=== PATIENT | female | born 1965 | race Caucasian/White ===

== ENCOUNTER 2024-07-21 08:35 | Outpatient (AMB) | payer OTHER, SELFPAY ==
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
[2024-07-21 08:31] VITALS: BP 108/82; PULSE 87; RESP 14; TEMP 36.8; O2SAT 97; BMI 31.4
--- OUTSIDE RECORDS SUMMARY | 2024-07-21 08:52 | XMS_ITS | Clinical Summary ---
Author Organization [facility] Address [address] [place] [address] Phone Care Team Providers Care Pallet Rectifier Name Role Phone Birdie Beth JAKE Primary Care Provider [phone] Allergies Active Allergy Reactions Criticality Noted Date Comments Atorvastatin 09/12/2023 Neomycin Rash,Unknown Low 04/17/2018 Medications polyethylene glycol (Golytely) 236-22.74-6.74 -5.86 gram solution Take 4L by mouth once for one dose. May substitue any PEG. Starting at 6PM the night before your procedure drink 1 8oz glasses at your own pace until you complete half of the gallon. Finish 2nd half of the gallon 5 hours before your procedure. 4000 mL 4 Active bisacodyL (DULCOLAX) 5 mg EC tablet Take 2 tablets by mouth right before beginning bowel prep. See instructions provided by the office 2 tablet 4 Active Surgical History Surgery Date Site/Laterality Comments BREAST CYST ASPIRATION Right Social History Tobacco Use Types Packs/Day Years Used Date Smoking Tobacco: Never Assessed Comments No Sex and Gender Information Value Date Recorded Sex Assigned at Not on file Legal Sex Female 11:07 AM EDT Gender Identity Not on file Sexual Orientation Not on file Obstetrics History Para Term AB IAB SAB Ectopic Multiple Livin g Live Births 4 Last Filed Vital Signs Vital Sign Reading Time Taken Comments Blood Pressure - - Pulse - - Temperature - - Respiratory Rate - - Oxygen Saturation - - Inhaled Oxygen Concentration - - Weight 74.8 kg (165 lb) 12/31/2023 8:14 AM EST Height 154.9 cm (5' 1 ) 12/31/2023 8:14 AM EST Body Mass Index 31.18 12/31/2023 8:14 AM EST Plan of Treatment Health Maintenance Due Date Last Done Comments Cervical Cancer Screening: P ap Smear 06/14/1988 Pneumococcal Vaccine: 50+ Years (1 of 1 - PCV) 06/14/2017 Zoster Vaccines (1 of 2) 06/14/2017 Cholesterol Screening (Lipid Panel) 09/14/2023 Colorectal Cancer Screening: Colonoscopy 09/14/2023 Depression Screening 09/14/2023 HIV Screening 09/14/2023 Hepatitis C Screening 09/14/2023 Social Influencers of Health Screening 09/14/2023 COVID-19 Vaccine (4 - 2023-2 5 season) 2023 01/09/2022, 01/07/2022, 12/12/2021 Influenza Vaccine (Season Ended) 2024 12/12/2021, 11/28/2018, 01/08/2018 Breast Cancer Screening 12/30/2025 12/31/2023 DTaP,Tdap,and Td Vaccines (3 - Td or Tdap) 01/10/2032 01/09/2022, 07/11/2011 Hepatitis B Vaccines Completed 05/11/2017, 12/14/2016, 11/13/2016 HIB Vaccines Aged Out No longer eligi ble based on patient's age to complete this topic HPV Vaccines Aged Out No longer eligi ble based on patient's age to complete this topic Hepatitis A Vaccines Aged Out No long er eligible based on patient's age to complete this topic IPV Vaccines Aged Out No longer eligi ble based on patient's age to complete this topic MMR Vaccines Aged Out No longer eligi ble based on patient's age to complete this topic Meningococcal ACWY Vaccine Aged Out N o longer eligible based on patient's age to complete this topic Meningococcal B Vaccine Aged Out No l onger eligible based on patient's age to complete this topic Pneumococcal Vaccine: Pediatrics (0 to 5 Years) and At-Risk Patients (6 to 64 Years) Aged Out No longer eligible b ased on patient's age to complete this topic RSV Immunization Patients Under 20 months Aged Out No longer eligible b ased on patient's age to complete this topic Varicella Vaccines Aged Out No longer eligible based on patient's age to complete this topic Procedures Procedure Name Priority Date/Time Associated Diagnosis Comments MG MAMMO DIGITAL SCREENING W ALEX BILAT Routine 12/31/2023 8:28 AM EST Encounter for screening mammogram for breast cancer from Last 3 Months or Most Recently Relevant to Health Maintenance Results * MG Mammo Digital Screening w Alex bilat (12/31/2023 8:28 AM EST) Anatomical Region Laterality Modality Breast Bilateral Mammography 01/02/2024 6:37 AM EST Impressions 01/02/2024 6:44 AM EST Heterogeneously dense tissue. ?? Circumscribed bilateral breast masses with typically benign features. The patient and provider should discuss the potential benefits of bilateral screening breast ultrasound ASSESSMENT: ?? BI-RADS 2: BENIGN RECOMMENDATION(S): 1: Routine screening mammogram BILATERAL in 1 year. -------- FINAL REPORT -------- Dictated By: Bud Abreu Dictated Date: 01/02/2024 06:37 ET Assigned Physician: Bud Abreu Reviewed and Electronically Signed By: Bud Abreu Signed Date: 01/02/2024 06:44 ET Workstation ID: [id number] Transcribed By: Self Edit Transcribed Date: 01/02/2024 06:37 ET Narrative 01/02/2024 6:44 AM EST EXAM: ??SCREENING MAMMOGRAPHY, BILATERAL HISTORY: ??SCREENING. ??No additional history. COMPARISON: ??04/05/2016, 11/18/2014 TECHNIQUE: Synthesized CC and MLO projections of each breast. ??Tomosynthesis of each breast in the CC and MLO projections. ADDITIONAL IMAGING: None Computer-aided detection was employed with the iCAD ??profound AI 3-D. TISSUE DENSITY: The breasts are heterogeneously dense, which may obscure small masses. (BI-RADS category C) FINDINGS: RIGHT BREAST: There are multiple circumscribed equal density oval masses. ??No additional suspicious right breast findings LEFT BREAST: There are multiple circumscribed equal density oval masses. ??No additional suspicious left breast findings Procedure Note Bud Abreu MD - 11/13/2024 EXAM: SCREENING MAMMOGRAPHY, BILATERAL HISTORY: SCREENING. No additional history. COMPARISON: 04/05/2016, 11/18/2014 TECHNIQUE: Synthesized CC and MLO projections of each breast.Tomosynthesis of each breast in the CC and MLO projections. ADDITIONAL IMAGING: None Computer-aided detection was employed with the iCAD profound AI 3-D. TISSUE DENSITY: The breasts are heterogeneously dense, which may obscuresmall masses. (BI-RADS category C) FINDINGS: RIGHT BREAST: There are multiple circumscribed equal density oval masses. No additionalsuspicious right breast findings LEFT BREAST: There are multiple circumscribed equal density oval masses. No additionalsuspicious left breast findings IMPRESSION: Heterogeneously dense tissue. Circumscribed bilateral breast masses with typically benign features. The patient and provider should discuss the potential benefits ofbilateral screening breast ultrasound ASSESSMENT: BI-RADS 2: BENIGN RECOMMENDATION(S): 1: Routine screening mammogram BILATERAL in 1 year. -------- FINAL REPORT -------- Dictated By: Bud Abreu Dictated Date: 01/02/2024 06:37 ET Assigned Physician: Bud Abreu Reviewed and Electronically Signed By: Bud Abreu Signed Date: 01/02/2024 06:44 ET Workstation ID: [id number] Transcribed By: Self Edit Transcribed Date: 01/02/2024 06:37 ET us Self Referral Sppl IMG BI PROCEDURES Final Resul t from Last 3 Months or Most Recently Relevant to Health Maintenance Insurance [facility] Care Teams Pallet Rectifier Relationship Specialty Start Date End Date Birdie Beth NP [address] [place] [id number] PCP - General 04/20/23
== END 2024-07-21 09:19 | disposition home or self-care (01) ==
LOC: HO.HMCFM 08:35
PROVIDERS: Visit Provider Physician Assistant Medical
DX: R92.30 Dense breasts, unspecified (principal); R79.89 Other specified abnormal findings of blood chemistry; E78.5 Hyperlipidemia, unspecified; F41.8 Other specified anxiety disorders; L30.9 Dermatitis, unspecified; N63.10 Unspecified lump in the right breast, unspecified quadrant; N63.20 Unspecified lump in the left breast, unspecified quadrant; E66.811 Obesity, class 1

== ENCOUNTER → 2024-07-21 08:35 | Outpatient (BNVA) | payer OTHER, SELFPAY | PROVIDERS: Visit Provider Physician Assistant Medical | DX: N63.10 Unspecified lump in the right breast, unspecified quadrant (principal); N63.20 Unspecified lump in the left breast, unspecified quadrant; R92.30 Dense breasts, unspecified; R79.89 Other specified abnormal findings of blood chemistry; E78.5 Hyperlipidemia, unspecified; F41.8 Other specified anxiety disorders; L30.9 Dermatitis, unspecified; E66.811 Obesity, class 1; Z68.31 Body mass index [BMI] 31.0-31.9, adult | CPT/HCPCS: 96127; 99202 ==

== ENCOUNTER → 2024-11-04 08:58 | Outpatient (REF) | payer OTHER, SELFPAY ==
--- NOTE | 2024-11-04 09:02 | CA_ITS ---
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 The calculated ejection fraction is 65% by biplane method. - Mrkj-hy-kaxuxzmb focal hypertrophy of the basal septum. - No obvious valvular pathology seen on this study. Findings Left Ventricle Normal left ventricular cavity size. The left ventricular systolic function is normal. The calculated ejection fraction is 65% by biplane method. There is no evidence of regional wall motion abnormalities. Diastolic function is normal for age. Xegb-bu-nnrafcii focal hypertrophy of the basal septum. Right Ventricle Normal right ventricular cavity size and systolic function. Atria Both atria are normal in size. Aortic Valve There is a normal trileaflet aortic valve. There is no aortic valve stenosis. There is no aortic valve regurgitation. Mitral Valve The mitral valve appears normal. There is no mitral valve regurgitation. There is no mitral valve stenosis. Pulmonic Valve The pulmonic valve is likely normal. Tricuspid Valve Normal tricuspid valve structure. There is trace tricuspid valve regurgitation. There is no evidence of pulmonary hypertension. Great Vessels The asc aorta and aortic arch are normal in size. Venous The inferior vena cava is normal in size and collapses greater than 50% with inspiration. Pericardium/Pleural There is no evidence of pericardial effusion. Prior Study Comparison No prior study available for comparison. Recommendations, Care & Conclusions No obvious valvular pathology seen on this study. Measurements 2D Linear Measurements IVSd: 1.28 0.6-0.9/0.6-1.0 cm LVIDd: 3.45 3.9-5.3/4.2-5.9 cm LVIDd Index: 2.07 2.4-3.2/2.2-3.1 cm/m2 LVIDs: 2.17 2.0-3.6 cm LVPWd: 0.93 0.7-1.1 cm LA Diam: 2.90 2.7-3.8/3.0-4.0 cm LAIDs Index: 1.74 1.5-2.3 cm/m2 LV Mass: 145.87 67-162/88-224 g LV Mass Index: 87.35 43-95/49-115 g/m2 LVOT Diam: 2.20 3.0+(-)1.3 cm 2D Systolic Function EF 4C: 63.60 >55% EF 2C: 64.00 >55% EF BiP: 64.70 >55% Mitral Valve MV Pk E: 0.53 MV PK A: 0.67 MV Decel Time: 191.00 E/A: 0.80 E'Lateral: 11.10 E'Medial: 5.98 E/E' Med: 8.90 E/E' Lat: 4.80 PHT: 56.00 MVA PHT: 3.93 Decel Garden: 2.77 Aortic Valve AoV Pk Hector: 1.09 AoV Mn Hector: 0.82 AoV VTI: 0.22 AoV Pk Grad: 5.00 Aov Mn Grad: 3.00 VLADIMIR Cont.VTI: 2.79 LVOT LVOT Pk Hector: 0.88 LVOT Mn Hector: 0.59 LVOT VTI: 0.16 LVOT Pk Grad: 3.00 LVOT Mn Grad: 2.00 LVOT Diam: 2.20 LVOT Area: 3.80 Diastolic Function MV Pk E: 0.53 MV Pk A: 0.67 E/A: 0.80 E'Medial: 5.98 E/E' Med: 8.90 E' Laterial: 11.10 E/E' Lat: 4.80 Right Ventricle TAPSE (mm): 20.00 TVS' Hector: 10.40 Tricuspid Valve RA Press: 3.00 Great Vessels Aorta Sinus of Valsalva: 3.38 2.0-3.5 cm Ao Asc: 3.00 2.1-3.4 cm Ao Arch: 2.60 Updated in Other Vendor System with Status of Final Norbert Rubio MD electronically signed on 11/05/2024 10:42:53 AM with status of Final
--- OUTSIDE RECORDS SUMMARY | 2024-11-04 11:09 | XMS_ITS | Clinical Summary ---
Author Organization [facility] Address [address] [place] [address] Phone Care Team Providers Care Broaching Machine Operator Name Role Phone Birdie Beth JAKE Primary Care Provider [phone] Allergies Active Allergy Reactions Criticality Noted Date [...] by the office 2 tablet 4 Active Encounters Date Type Department Care Team Description 08/27/2024 9:49 AM EDT - 08/27/2024 11:59 PM EDT Hospital Encounter [facility] [address] [place] [address] Dense breast Discharge Disposition: Home or Self Care from Last 3 Months Surgical History Surgery Date Site/Laterality Comments BREAST [...] 12/31/2023 8:14 AM EST Plan of Treatment Upcoming Encounters Date Type Department Care Team (Late st Contact Info) Description 02/27/2025 1:00 PM EST Appointment [facility] [address] [place] [address] Health Maintenance Due Date Last Done Comments Cervical Cancer Screening: P ap Smear 06/14/1988 Pneumococcal Vaccine: 50+ Years (1 of 1 - PCV) 06/14/2017 Zoster Vaccines (1 of 2) 06/14/2017 Cholesterol Screening (Lipid Panel) 09/14/2023 HIV Screening 09/14/2023 Hepatitis C Screening 09/14/2023 Social Influencers of Health Screening 09/14/2023 Depression Screening 02/20/2024 COVID-19 Vaccine ( - 2024-2 6 season) 2024 01/09/2022, 01/07/2022, 12/12/2021 Influenza Vaccine (#1) 2024 , 11/28/2018, 01/08/2018 Breast Cancer Screening 12/30/2025 12/31/2023 Colorectal Cancer Screening: FIT-DNA (Cologuard) 08/06/2027 08/05/2024, 08/05/2024 DTaP,Tdap,and Td Vaccines (3 - Td or [...] Procedure Name Priority Date/Time Associated Diagnosis Comments US BREAST COMPLETE BILAT SCREENING Routine 08/27/2024 10:51 AM EDT Dense breast MG MAMMO DIGITAL SCREENING W ALEX BILAT Routine 12/31/2023 8:28 AM EST Encounter for screening mammogram for breast cancer from Last 3 Months or Most Recently Relevant to Health Maintenance Results * US Breast Complete bilat Screening (08/27/2024 10:51 AM EDT) Anatomical Region Laterality Modality Breast Bilateral Ultrasound 08/27/2024 10:4 0 AM EDT Impressions 08/27/2024 10:48 AM EDT There are no suspicious masses. No suspicious areas of altered echotexture. There are probably benign findings as described above in each breast. Recommend short interval diagnostic bilateral breast ultrasound in 6 months The patient will be due for bilateral screening mammography ASSESSMENT: BI-RADS 3: PROBABLY BENIGN RETURN TO ROUTINE FOLLOW-UP: No RECOMMENDATION(S): 1: Ultrasound follow-up BILATERAL in 6 months. Location: [address], [address] -------- FINAL REPORT -------- Dictated By: Bud Abreu Dictated Date: 08/27/2024 10:40 ET Assigned Physician: Bud Abreu Reviewed and Electronically Signed By: Bud Abreu Signed Date: 08/27/2024 10:48 ET Workstation ID: [id number] Transcribed By: Self Edit Transcribed Date: 08/27/2024 10:40 ET Narrative 08/27/2024 10:48 AM EDT EXAM: BILATERAL SCREENING BREAST ULTRASOUND US COMPARISON: None MAMMOGRAPHY TISSUE DENSITY: The breasts are heterogeneously dense, which may obscure small masses. (BI-RADS category C) HISTORY: SCREENING IMAGING: High-frequency linear transducer grayscale imaging of each breast was performed. Documentation and archived of images in multiple planes from all 4 quadrants of each breast and of the axilla and retroareolar regions performed. FINDINGS: RIGHT BREAST: 5 o'clock position, 2 cm from right nipple Circumscribed homogeneous hypoechoic oval mass with long axis parallel. No color signal. No suspicious posterior features. 7//25-0.6 cm This has probably benign features 7 o'clock position, 5 cm from right nipple Circumscribed homogeneous hypoechoic oval mass. Long axis parallel. No suspicious posterior features. No color signal. 7//25-1.0 cm This has probably benign features There are benign cysts. There is duct ectasia. LEFT BREAST: 2 o'clock position, 4 cm from left nipple There are a group of small anechoic spaces. This likely represents grouped microcysts. No color signal. No suspicious posterior features 7/25-0.4 cm This has probably benign features There are some benign cysts. There is duct ectasia. Procedure Note Bud Abreu MD - 08/27/2024 EXAM: BILATERAL SCREENING BREAST ULTRASOUND US COMPARISON: None MAMMOGRAPHY TISSUE DENSITY: The breasts are heterogeneously dense, whichmay obscure small masses. (BI-RADS category C) HISTORY: SCREENING IMAGING: High-frequency linear transducer grayscale imaging of each breastwas performed. Documentation and archived of images in multiple planesfrom all 4 quadrants of each breast and of the axilla and retroareolarregions performed. FINDINGS: RIGHT BREAST: 5 o'clock position, 2 cm from right nipple Circumscribed homogeneous hypoechoic oval mass with long axis parallel.No color signal. No suspicious posterior features. 7//25-0.6 cm This has probably benign features 7 o'clock position, 5 cm from right nipple Circumscribed homogeneous hypoechoic oval mass. Long axis parallel. Nosuspicious posterior features. No color signal. 7//25-1.0 cm This has probably benign features There are benign cysts. There is duct ectasia. LEFT BREAST: 2 o'clock position, 4 cm from left nipple There are a group of small anechoic spaces. This likely representsgrouped microcysts. No color signal. No suspicious posterior features 08/27/24-0.4 cm This has probably benign features There are some benign cysts. There is duct ectasia. IMPRESSION: There are no suspicious masses. No suspicious areas of altered echotexture. There are probably benign findings as described above in each breast. Recommend short interval diagnostic bilateral breast ultrasound in 6months The patient will be due for bilateral screening mammography ASSESSMENT: BI-RADS 3: PROBABLY BENIGN RETURN TO ROUTINE FOLLOW-UP: No RECOMMENDATION(S): 1: Ultrasound follow-up BILATERAL in 6 months. Location: [address], [address] -------- FINAL REPORT -------- Dictated By: Bud Abreu Dictated Date: 08/27/2024 10:40 ET Assigned Physician: Bud Abreu Reviewed and Electronically Signed By: Bud Abreu Signed Date: 08/27/2024 10:48 ET Workstation ID: [id number] Transcribed By: Self Edit Transcribed Date: 08/27/2024 10:40 ET us Faustina MUNIZ IMG US PROCEDURES Final Resul t * MG Mammo Digital Screening w Alex bilat (12/31/2023 8:28 AM EST) Anatomical Region Laterality Modality Breast Bilateral Mammography 01/02/2024 6:37 AM EST Impressions 01/02/2024 6:44 AM EST Heterogeneously dense tissue. Circumscribed bilateral breast masses with typically benign features. The patient and provider should discuss the potential benefits of bilateral screening breast ultrasound ASSESSMENT: BI-RADS 2: BENIGN RECOMMENDATION(S): 1: Routine screening mammogram BILATERAL in 1 year. -------- FINAL REPORT -------- Dictated By: Bud Abreu Dictated Date: 01/02/2024 06:37 ET Assigned Physician: Bud Abreu Reviewed and Electronically Signed By: Bud Abreu Signed Date: 01/02/2024 06:44 ET Workstation ID: [id number] Transcribed By: Self Edit Transcribed Date: 01/02/2024 06:37 ET Narrative 01/02/2024 6:44 AM EST EXAM: SCREENING MAMMOGRAPHY, BILATERAL HISTORY: SCREENING. No additional history. COMPARISON: 04/05/2016, 11/18/2014 TECHNIQUE: Synthesized CC and MLO projections of each breast. Tomosynthesis of each breast in the CC and MLO projections. ADDITIONAL IMAGING: None Computer-aided detection was employed with the [employer] AI 3-D. TISSUE DENSITY: The breasts are heterogeneously dense, which may obscure small masses. (BI-RADS category C) FINDINGS: RIGHT BREAST: There are multiple circumscribed equal density oval masses. No additional suspicious right breast findings LEFT BREAST: There are multiple circumscribed equal density oval masses. No additional suspicious left breast findings Procedure Note Bud Abreu MD - 01/02/2024 EXAM: SCREENING MAMMOGRAPHY, BILATERAL HISTORY: SCREENING. No additional history. COMPARISON: 04/05/2016, 11/18/2014 TECHNIQUE: Synthesized CC and MLO projections of each breast.Tomosynthesis of each breast in the CC and MLO projections. ADDITIONAL IMAGING: None Computer-aided detection was employed with the [employer] AI 3-D. TISSUE DENSITY: The breasts [...] Abreu Reviewed and Electronically Signed By: Bud Arbeu Signed Date: 01/02/2024 06:44 ET Workstation ID: [id number] Transcribed By: Self Edit Transcribed Date: 01/02/2024 06:37 ET us Self Referral Sppl IMG BI PROCEDURES Final Resul t from Last 3 Months or Most Recently Relevant to Health Maintenance Insurance [facility] PL[facility] MEDICAID - [place] Care Teams Broaching Machine Operator Relationship Specialty Start Date End Date Birdie Beth NP [address] [place] [address] PCP - General 04/20/23
--- OUTSIDE RECORDS SUMMARY | 2024-11-04 11:09 | XMS_ITS | Clinical Summary ---
Author Organization [facility] Address [address] [facility] [place], [place] [address] [place] [phone] Phone Care Team Providers Care Sports Doctor Name Role Phone Sonia Horowitz MD Primary Care Provide r Allergies Active Allergy Reactions Criticality Noted Date Comments Neomycin Rash Low 04/17/2018 Medications buPROPion (WELLBUTRIN SR) 100 MG SR 12 hr tablet Take 100 mg by mouth 2 (two) times a day. Active venlafaxine (EFFEXOR) 50 MG tablet Take 50 mg by mouth 2 (two) times a day. Active cholecalciferol (VITAMIN D3) 5,000 unit capsule Take 5,000 Units by mouth daily. Active black cohosh 540 mg Cap Take 2 capsules by mouth daily. Active turmeric 400 mg Cap Take 400 mg by mouth daily. Active ASHWAGANDHA EXTRACT ORAL Take 1 capsule by mouth daily. Active therapeutic multivitamin tablet Take 1 tablet by mouth daily. Active b complex vitamins capsule Take 1 capsule by mouth daily. Active phentermine 15 MG capsuleIndication s:Obesity, Class I, BMI 30-34.9 Take 1 capsule (15 mg total) by mouth every morning. 60 capsule 1 3 Active Active Problems Problem Noted Date Diagnosed Date Obesity, Class I, BMI 30-34.9 01/05/2020 Assessment & Plan (12/06/2022 10:55 AM EDT): Estimated body mass index is 32.08 kg/m as calculated from the following: Height as of this encounter: 156.2 cm (5' 1.5 ). Weight as of this encounter: 78.3 kg (172 lb 9.6 oz). Weight at Initial Visit: Age: 54 y.o. Weight: 193 lbs. BMI: ?35 Weight History (triggers to weight gain) Weight at age 20: 118 lbs. Onset of weight gain: Always had a problem with weight . First at age 24, gained weight during , challenge losing weight. Divorce. Weight gain triggers: Stress, lack of time. Highest weight: 193 lbs. : 4 pregnancies, gained 50 lbs with each . No GDM. Last at age [age] years old. Prior Weight Loss Efforts Self directed diets: Exercising. Previously in [employer] and [email or web address]. 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 Hypnosis. Commercial Programs: None. Anti-Obesity Medications: None. Weight Loss surgery: None. Family History: Obesity: Father and sister. DM: Father and sister Diet: Intermittent fasting, focusing on water intake. 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 Activity during day. Sleep: Disrupted sleep, hot flashes. Taking Black Cohosh. Stress: High stress time. from , shared custody. Support: Lives with daughter, older children out of house. 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 Menstrual Cycles: Regular cycles remain. Contraception: Previously on OCP, now off. Weight gain risk factors: + FH of obesity and DM, high stress time, now limited activity. She returns today for a follow-up appointment. She was last seen 2.5 years ago. At the time of our last visit she had been on treatment with phentermine. She was tolerating it well. Today she notes that she has been off of phentermine since our last visit. She notes several changes since our last visit including employment changes and from . She has previously meet with Kari Aviles and she is continuing to focus on food choices. She has also previously met with Dr. Umu Lockhart to address emotional eating. She notes ongoing high stress time but improved from prior. Previously Dr. Lockhart had encouraged her to start meeting with a therapist regularly. Hortensia has been working to establish this but has not yet been able to establish with a provider yet. She is currently on waiting list. We discussed options today. In the past she has done well on phentermine and she is interested in restarting. We briefly reviewed GLP-1 but she is not interested in considering at this time. I recommend restarting phentermine 15 mg daily to help support weight loss efforts. She will continue to monitor for worsening anxiety and sleep. We will plan to meet in-person for our next visit. Weight Management: 1. Reviewed metabolic benefits associated with weight loss. 2. Diet: Previously met with Kari Aviles for nutrition and weight loss counseling. 3. Exercise: Recommend increased daily activity with exercise 30 minutes at least 5 times per week. Exercise commitment: Cont focus on daily activity. 4. Psych: Previously met with Dr. Umu Lockhart to focus on emotional relationship with food. 5. Anti-Obesity Medications: Restart phentermine 15 mg daily. Monitor for worsening anxiety and sleep. 6. Metabolic and Bariatric Surgery: She does not meet BMI criteria. RTC: 3 months, in-person. Assessment & Plan (03/09/2020 2:49 PM EST): Estimated body mass index is 35.32 kg/m as calculated from the following: Height as of 04/16/19: 156.2 cm (5' 1.5 ). Weight as of 01/05/20: 86.2 kg (190 lb). Weight at Initial Visit: Age: 54 y.o. Weight: 193 lbs. BMI: ?35 Weight History (triggers to weight gain) Weight at age 20: 118 lbs. Onset of weight gain: Always had a problem with weight . First at age 24, gained weight during , challenge losing weight. Divorce. Weight gain triggers: Stress, lack of time. Highest weight: 193 lbs. : 4 pregnancies, gained 50 lbs with each . No GDM. Last at age [age] years old. Prior Weight Loss Efforts Self directed diets: Exercising. Previously in [employer] and [employer]. 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 Commercial Programs: None. Anti-Obesity Medications: None. Weight Loss surgery: None. Family History: Obesity: Father and sister. DM: Father and sister Today's weight: Unknown Diet: Working on increased water intake. 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 Apple watch, cleaning house. Sleep: Disrupted sleep, hot flashes. Taking Black Cohosh. Stress: High stress time. Recently left job to help support daughter's home schooling. Support: Lives with and daughter, older children out of house. Feels like she does not have good support at home. Work: Previously worked at 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 Menstrual Cycles: Regular cycles but cyst formation and heavy flow. Contraception: Previously on OCP, now off. Weight gain risk factors: + FH of obesity and DM, high stress time, now limited activity. She returns today for a follow-up appointment. She was last seen 6 weeks ago. At the time of our last visit we had started treatment with phentermine. She is tolerating it well. She notes ongoing disrupted sleep but attributes to hot flashes overnight. She feels that the phentermine is helping and while she has not weighed herself she feels that clothes are fitting differently. She has previously meet with Kari Aviles and has been focusing on food choices. She has also met with Dr. Umu Lockhart to address emotional eating. She notes ongoing high stress time with several deaths in her extended family since our last visit. She is continuing to struggle with anxiety and Dr. Lockhart has encouraged her to start meeting with a therapist regularly to help address this. We discussed options today. I recommend increasing phentermine to 30 mg daily to help support weight loss efforts. She will continue to monitor for worsening anxiety and sleep. Weight Management: 1. Reviewed metabolic benefits associated with weight loss. Goal weight loss of 5-10% over 6 to 12 months. 2. Diet: Cont working with Kari Aviles for nutrition and weight loss counseling. 3. Exercise: Recommend increased daily activity with exercise 30 minutes at least 5 times per week. Exercise commitment: Virtual class, 2 times weekly. 4. Psych: Cont working with Dr. Umu Lockhart to focus on emotional relationship with food. 5. Anti-Obesity Medications: Inc phentermine to 30 mg daily. 6. Weight Loss Surgery: She does not meet BMI criteria. 7. Will schedule for frequent visits to help maintain motivation and accountability. RTC: 6-8 weeks. Assessment & Plan (01/26/2020 1:47 PM EST): Estimated body mass index is 35.32 kg/m as calculated from the following: Height as of 04/16/19: 156.2 cm (5' 1.5 ). Weight as of 01/05/20: 86.2 kg (190 lb). Diet: Working on increased water intake. 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 Sleep: Disrupted sleep, hot flashes. Taking Black Cohosh. Stress: High stress time. Recently left job to help support daughter's home schooling. Support: Lives with and daughter, older children out of house. Feels like she does not have good support at home. 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 Menstrual Cycles: Regular cycles but cyst formation and heavy flow. Contraception: Previously on OCP, now off. Weight gain risk factors: + FH of obesity and DM, high stress time, now limited activity. She returns today for a follow-up appointment. She was last seen 4 weeks ago. At the time of our last visit we had focused discussion on stress and emotional eating. Today she notes that ongoing high stress time and during visit had her grandaughter at home with her as well as her daughter who was doing home schooling. She has previously met with Kari Aviles and has been trying to incorporate changes but notes that this has been challenging for her. She has also tried to return to exercise but limited by hip pain. We discussed options today. At her last visit we had reviewed anti-obesity medications (AOM) but had decided to focus on lifestyle change first. Today she notes that she is interested in weight loss medication. I recommend starting treatment with phentermine. Side effects and administration reviewed. She will monitor for worsening anxiety and sleep. Lastly, given high stress time and impact on her relationship with food we had discussed meeting with an [facility] pscyhologist. She is scheduled to meet with Dr. Umu Lockhart tomorrow. may be helpful. She agrees and I will refer her for psych evaluation. Weight Management: 1. Reviewed metabolic benefits associated with weight loss. Goal weight loss of 5-10% over 6 to 12 months. 2. Diet: Cont working with Kari Aviles for nutrition and weight loss counseling earlier today. 3. Exercise: Recommend increased daily activity with exercise 30 minutes at least 5 times per week. Exercise commitment: Virtual class, 2 times weekly. 4. Psych: Meet with Dr. Umu Lockhart to focus on emotional relationship with food. 5. Anti-Obesity Medications: Reviewed medication options. Start trial of phentermine. 6. Weight Loss Surgery: She does not meet BMI criteria. 7. Will schedule for frequent visits to help maintain motivation and accountability. RTC: 4-6 weeks. Assessment & Plan (01/05/2020 11:54 AM EST): Estimated body mass index is 35.32 kg/m as calculated from the following: Height as of 04/16/19: 156.2 cm (5' 1.5 ). Weight as of an earlier encounter on 01/05/20: 86.2 kg (190 lb). Typical Daily Diet: Minimal water intake. Breakfast: Coffee. Lunch: PBJ on white bread. Dinner: Protein (chicken, pork), potato or rice, corn or green beans. Take-out 2 times weekly. Snacks: Minimal snacking but cravings for sweets recently. ? 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 Sleep: Disrupted sleep, hot flashes. Taking Black Cohosh. Stress: High stress time. Recently left job to help support daughter's home schooling. Marital challenges. Support: Lives with and daughter, older children out of house. Feels like she does not have good support at home. 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 Menstrual Cycles: Regular cycles but cyst formation and heavy flow. Contraception: Previously on OCP, now off. Weight gain risk factors: + FH of obesity and DM, high stress time, now limited activity. Presenting today for evaluation. Weight history and weight gain risk factors were reviewed in detail. She does not meet BMI criteria for weight loss surgery. She notes very challenging time. 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 She notes very high stress time and eating in response to stress. She has previously had a very high fitness routine but minimal recently. We discussed the importance of diet and exercise. She met with Kari Aviles earlier today and is interested in considering the MINT program. We also discussed the importance of increased activity. I recommend a target of 30 mins 5 times weekly of moderate intensity exercise. She set an exercise SMART goal. Given high stress time and impact on her relationship with food I suggest that meeting with an [facility] pscyhologist may be helpful. She agrees and I will refer her for psych evaluation. Lastly, we also discussed anti-obesity medications. She may benefit from treatment with medication but at this point, I recommend starting with MINT program, meeting with psych and focusing on returning to regular exercise routine. We will meet back in 4 weeks and at that time re-evaluate the need for medications. Weight Management: 1. Reviewed metabolic benefits associated with weight loss. Goal weight loss of 5-10% over 6 to 12 months. 2. Diet: She met with Kari Aviles for nutrition and weight loss counseling earlier today. 3. Exercise: Recommend increased daily activity with exercise 30 minutes at least 5 times per week. Exercise commitment: Virtual class, 2 times weekly. 4. Psych: Meet with psychology team to focus on emotional relationship with food. 5. Anti-Obesity Medications: Reviewed medication options. Will defer at this time. 6. Weight Loss Surgery: She does not meet BMI criteria. 7. Will schedule for frequent visits to help maintain motivation and accountability. RTC: 4 weeks. Perimenopausal vasomotor symptoms 04/17/2018 Assessment & Plan (12/06/2022 10:56 AM EDT): Ongoing overnight symptoms. She is continuing to have menstrual cycles. She remains on treatment with black cohosh. Assessment & Plan (03/09/2020 2:50 PM EST): Ongoing overnight symptoms. Cycles remain regular but had decreased in frequency over the last several months. She is focusing on adjusting clothing, room temperature to help address overnight issues. Assessment & Plan (04/17/2019 3:18 PM EST): With the heavier bleeding and shorter cycles, will try OCp, R&B discussed; sample pack of loestrin 24 (Taytulla) given, she will let me know Assessment & Plan (04/17/2018 1:08 PM EST): OTC, lifetstyle and treatment options reviewed incl HRT, will discuss further, she is not interested in Rx today, lengthy talk Immunizations Immunization Administration Dates Next Due COVID-19 (Pre-12/11) Moderna Vaccine, Bivalent 6 mo+ 01/07/2022,12/12/2021 COVID-19 (Pre-12/11) Moderna Vaccine, mRNA, PF 1 Family History Medical History Relation Comments Diabetes Father Hyperlipidemia Father Hypertension Father Osteoporosis Mother Skin cancer Mother Graves' disease Sister 2 Hypertension Sister 2 Relation Status Comments Father Alive Mother Alive Sister 1 Sister 2 Social History Tobacco Use Types Packs/Day Years Used Date Smoking Tobacco: Former Smokeless Tobacco: Never Comments:High school Alcohol Use Standard Drinks/Week Comments Yes 0 (1 standard drink = 0.6 oz pur e alcohol) Socially Education Answer Date Recorded Are you interested in more education? Not on yenny e 06/16/2022 Are you concerned about learning? Not on file 06/16/2022 No 06/16/2022 No 06/16/2022 Digital Access Answer Date Recorded No 07/15/2022 No 07/15/2022 No 07/15/2022 Reliable internet access at home? Not on file 07/15/2022 Device with a working camera? Not on file Comments No Sex and Gender Information Value Date Recorded Sex Assigned at Not on file Legal Sex Female 11:02 AM EDT Gender Identity Not on file Sexual Orientation Not on file Last Filed Vital Signs Vital Sign Reading Time Taken Comments Blood Pressure 116/74 04/16/2019 12:21 PM EST Pulse - - Temperature - - Respiratory Rate - - Oxygen Saturation - - Inhaled Oxygen Concentration - - Weight 78.3 kg (172 lb 9.6 oz) 12/06/2022 10:39 AM EDT Height 156.2 cm (5' 1.5 ) 12/06/2022 10:39 AM ED T Body Mass Index 32.08 12/06/2022 10:39 AM EDT Plan of Treatment Health Maintenance Due Date Last Done Comments Adult Td,Tdap Booster 1965 LIPID PANEL 1965 DEPRESSION SCREENING 1979 SMOKING Hx and SMOKELESS TOBACCO SCREENING 06/14/1980 HEPATITIS C SCREENING 06/14/1985 HIV ONE-TIME SCREENING (18-6 5 YEARS) 06/14/1985 MAMMOGRAM 2007 COLOGUARD 06/14/2012 COLONOSCOPY 06/14/2012 COLORECTAL CANCER SCREENING 06/14/2012 FIT TEST 06/14/2012 FOBT 06/14/2012 SIGMOIDOSCOPY 06/14/2012 VIRTUAL COLONOSCOPY 06/14/2012 PNEUMOCOCCAL VACCINES (50+ years) (1 of 1 - PCV) 06/14/2017 ZOSTER VACCINES (1 of 2) 06/14/2017 SCREENING FOR DIABETES 12/25/2022 12/26/2019 PAP SMEAR 04/17/2023 04/17/2018, 04/17/2018 INFLUENZA VACCINE (#1) 2024 , 12/09/2019 COVID-19 VACCINE (2024-2 6 season) 2024 01/07/2022, 12/12/2021, 12/12/2021 HEPATITIS A VACCINES Aged Out No long er eligible based on patient's age to complete this topic HIB VACCINES Aged Out No longer eligi ble based on patient's age to complete this topic MENINGOCOCCAL VACCINES (ACWY) Aged Out No longer eligible based on patient's age to complete this topic MENINGOCOCCAL VACCINES (B) Aged Out N o longer eligible based on patient's age to complete this topic Medical Devices Not on file Procedures Procedure Name Priority Date/Time Associated Diagnosis Comments PAP TEST Routine 04/17/2018 12:00 AM EST from Last 3 Months or Most Recently Relevant to Health Maintenance Results * Pap Smear (04/17/2018 12:00 AM EST) 04/17/2018 04/18/2018 1:1 2 PM EST Narrative SEE NARRATIVE - 04/25/2018 7:22 AM EST [address] [id number] [place] Tender: Glory Altamirano 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 PAP SMEAR (SUREPATH) CE: SPECIMEN ADEQUACY: Satisfactory for evaluation; transformation zone absent/insufficient. INTERPRETATION: NEGATIVE FOR INTRAEPITHELIAL LESION OR MALIGNANCY. Fungal organisms morphologically consistent with Susan species. Electronically Signed Out By: Arpita Hartley [facility]) The Pap test is a screening test primarily for squamous cancers and precursors and has associated false-negative and false-positive results. New technologies such as liquid-based preparations may decrease but will not eliminate all false-negative results. Regular sampling and follow-up of unexplained clinical signs and symptoms are recommended to minimize false negative results. PROCEDURES/ADDENDA HPV Testing (Requested) Ordered Date: 04/18/2018 HPV Test Negative for high-risk human papillomavirus types 16, 18, 45 and the Other high risk probe set (Includes 31, 33, 35, 39, 51, 52, 56, 58, 59, 66, 68) by Project Manager Onclarity HR-HPV analysis. Clinical correlation is advised. This HPV test was performed at [facility], [address] [place] [address]. This test has been FDA approved for SurePath cervical cytology specimens. The accuracy and precision of this test for all other specimen sources has been verified in the Cytopathology Laboratory of the [facility] and has not been cleared or approved by the U.S. Food and Drug Administration. Clinical correlation is advised. Electronically Signed Out By: Guerda Guy [facility])BALDOMERO on 04/25/2018 07:22 CLINICAL HISTORY Date of Last Menstrual Period: Not Provided Menstrual History: Connie-Menopausal Other Clinical Conditions: Screening Pap SPECIMEN SOURCE A: PAP SMEAR (SUREPATH) CE Patient Name: HORTENSIA HIDALGO : 1965 (Age: 52) Sex: F Institution: [facility] Location: [facility] Date of Collection: 04/17/2018 Date of Reported: 04/24/2018 14:20 Results to: Dianelys Contreras MD us Dianelys Contreras MD CYTOLOGY ORDERABLES Edited Resul t - Final SEE NARRATIVE from Last 3 Months or Most Recently Relevant to Health Maintenance Insurance [facility] PCP [facility] Care Teams Sports Doctor Relationship Specialty Start Date End Date Sonia Horowitz MD [address] [place] [id number] PCP - General Internal Medicine 04/02/18 Additional Source Comments The information contained in this document represents components of the legal health record. It is not the complete legal health record.[facility]
--- OUTSIDE RECORDS SUMMARY | 2024-11-04 11:09 | XMS_ITS | Encounter Summary ---
Author Organization [facility] Address [address] [place] [address] Phone Care Team Providers Care Computer Assistant Name Role Phone Sonia Horowitz MD Primary Care Provide r Encounter Details Date Type Department Care Team (Late st Contact Info) Description 11/19/2020 Telephone [facility] [address] [place] [address] Isi Ferguson [address] [facility] [address] [place] [address] [email or web address] Social History Tobacco Use Types Packs/Day Years Used Date Smoking Tobacco: Former Smokeless Tobacco: Never Comments:High school Alcohol Use Standard Drinks/Week Comments Yes 0 (1 standard drink = 0.6 oz pur e alcohol) Socially Comments No Sex and Gender Information Value Date Recorded Sex Assigned at Not on file Legal Sex Female 11:02 AM EDT Gender Identity Not on file Sexual Orientation Not on file documented as of this encounter Plan of Treatment Not on file documented as of this encounter Visit Diagnoses Not on filedocumented in this encounter Care Teams Computer Assistant Relationship Specialty Start Date End Date Sonia Horowitz MD [address] [place] [address] PCP - General Internal Medicine 04/02/18 documented as of this encounter Additional Source Comments The information contained in this document represents components of the legal health record. It is not the complete legal health record.[facility]
== END ==
LOC: HO.CARD 08:58
PROVIDERS: PCP Physician Assistant Medical; Visit Provider Physician Assistant Medical
DX: I44.4 Left anterior fascicular block (principal); R07.89 Other chest pain
CPT/HCPCS: 93306

== ENCOUNTER → 2024-11-04 09:02 | Outpatient (BNV) | payer OTHER, SELFPAY | PROVIDERS: PCP Physician Assistant Medical; Visit Provider Internal Medicine | DX: I42.2 Other hypertrophic cardiomyopathy (principal) | CPT/HCPCS: 93306 ==

== ENCOUNTER 2025-01-20 08:06 | Outpatient (REF) | payer OTHER, SELFPAY ==
--- OUTSIDE RECORDS SUMMARY | 2025-01-20 08:11 | XMS_ITS | Clinical Summary ---
Author Organization [facility] Address [address] [facility] [address] [place] [id number] Phone Care Team Providers Care Upholstery Sewer Name Role Phone Sonia Horowitz MD Primary [...] Efforts Self directed diets: Exercising. Previously in [employer] and [employer]. 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 Hypnosis. Commercial Programs: None. Anti-Obesity Medications: None. Weight Loss surgery: None. Family History: Obesity: Father and sister. DM: Father and sister Diet: Intermittent fasting, focusing on water intake. 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 Activity during day. Sleep: Disrupted sleep, hot flashes. Taking Black Cohosh. Stress: High stress time. from , shared custody. Support: Lives with daughter, older children out of house. 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 Menstrual Cycles: Regular cycles remain. Contraception: Previously [...] Efforts Self directed diets: Exercising. Previously in [employer]. 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 Commercial Programs: None. Anti-Obesity Medications: None. Weight Loss surgery: None. Family History: Obesity: Father and sister. DM: Father and sister Today's weight: Unknown Diet: Working on increased water intake. 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 Apple watch, cleaning house. Sleep: Disrupted sleep, hot flashes. Taking Black Cohosh. Stress: High stress time. Recently left job to help support daughter's home schooling. Support: Lives with and daughter, older children out of house. Feels like she does not have good support at home. 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 Menstrual Cycles: Regular cycles but [...] increased water intake. 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 Sleep: Disrupted sleep, hot flashes. Taking Black Cohosh. Stress: High stress time. Recently left job to help support daughter's home schooling. Support: Lives with and daughter, older children out of house. Feels like she does not have good support at home. 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 Menstrual Cycles: Regular cycles but [...] food we had discussed meeting with an [facility] pscyhologist. She is scheduled to [...] sweets recently. ? 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 Sleep: Disrupted sleep, hot flashes. Taking Black Cohosh. Stress: High stress time. Recently left job to help support daughter's home schooling. Marital challenges. Support: Lives with and daughter, older children out of house. Feels like she does not have good support at home. 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 Menstrual Cycles: Regular cycles but [...] food I suggest that meeting with an [facility] pscyhologist may be helpful. She [...] VACCINE (#1) 2024 , 12/09/2019 COVID-19 VACCINE (4 - 2024-2 6 season) 2024 01/07/2022, 12/12/2021, 12/12/2021 RSV VACCINE (1 - 1-dose 75+ series) 06/14/2042 HEPATITIS A VACCINES Aged Out No long [...] SEE NARRATIVE - 04/25/2018 7:22 AM EST [address] [address] Director Of Cardiac Rehabilitation: Glory Altamirano MD INSURANCE SPECIALIST Cytology Report FINAL DIAGNOSIS A. PAP SMEAR (SUREPATH) CE: SPECIMEN ADEQUACY: Satisfactory for evaluation; transformation zone absent/insufficient. INTERPRETATION: NEGATIVE FOR INTRAEPITHELIAL LESION OR MALIGNANCY. Fungal organisms morphologically consistent with Susan species. Electronically Signed Out By: Arpita Hartley [facility]) The Pap test is a screening test [...] 52, 56, 58, 59, 66, 68) by ValenTxrity HR-HPV analysis. Clinical correlation is advised. This HPV test was performed at [facility], [address] [place] [address]. This test has been FDA approved for SurePath cervical cytology specimens. The accuracy and precision of this test for all other specimen sources has been verified in the Cytopathology Laboratory of the [facility] and has not been cleared or approved by the U.S. Food and Drug Administration. Clinical correlation is advised. CLINICAL HISTORY Date of Last Menstrual Period: Not Provided Menstrual History: Connie-Menopausal Other Clinical Conditions: Screening Pap SPECIMEN SOURCE A: PAP SMEAR (SUREPATH) CE Patient Name: HORTENSIA HIDALGO : 1965 (Age: 52) Sex: F Institution: [facility] Location: [facility] Date of Collection: 04/17/2018 Date of Reported: 04/24/2018 14:20 Results to: Dianelys Contreras MD Dianelys Contreras MD CYTOLOGY ORDERABLES Edited Resul t - Final SEE NARRATIVE from Last 3 Months or Most Recently Relevant to [place] [address] [facility] NON NSPG [facility]CP [facility] Care Teams Upholstery Sewer Relationship Specialty Start Date End Date Sonia Horowitz MD [address] [place] [id number] PCP - General Internal Medicine 04/02/18 Additional Source Comments The information contained in this document represents components of the legal health record. It is not the complete legal health record.[facility]
--- OUTSIDE RECORDS SUMMARY | 2025-01-20 08:11 | XMS_ITS | Clinical Summary ---
Author Organization [facility] Address [address] [place] [address] Phone Care Team Providers Care Chief Librarian Branch Or Department Name Role Phone Birdie Beth JAKE Primary Care Provider Allergies Active Allergy Reactions Criticality Noted Date [...] Info) Description 02/27/2025 1:00 PM EST Appointment [facility] Ultrasound [address] [place] [address] Health Maintenance Due Date Last Done Comments Cervical Cancer Screening: P ap Smear 06/14/1988 Pneumococcal Vaccine: 50+ Years (1 of 1 - PCV) 06/14/2017 Zoster Vaccines (1 of 2) 06/14/2017 Cholesterol Screening (Lipid Panel) 09/14/2023 HIV Screening 09/14/2023 Hepatitis C Screening 09/14/2023 Social Influencers of Health Screening 09/14/2023 Depression Screening 02/20/2024 COVID-19 Vaccine (4 - 2024-2 6 season) 2024 01/09/2022, 01/07/2022, 12/12/2021 Influenza Vaccine (#1) 2024 , 11/28/2018, 01/08/2018 Breast Cancer Screening 12/30/2025 12/31/2023 Colorectal Cancer Screening: FIT-DNA (Cologuard) 08/06/2027 08/05/2024, 08/05/2024 DTaP,Tdap,and Td Vaccines (3 - Td or Tdap) 01/10/2032 01/09/2022, 07/11/2011 RSV Immunization Adult Patients (1 - 1-dose 75+ series) 06/14/2042 Hepatitis B Vaccines Completed 05/11/2017, 12/14/2016, 11/13/2016 [...] Signed Date: 01/02/2024 06:44 ET Workstation ID: [id number] Transcribed By: Self Edit Transcribed Date: 01/02/2024 [...] None 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 TISSUE DENSITY: The breasts are [...] Signed Date: 01/02/2024 06:44 ET Workstation ID: [id number] Transcribed By: Self Edit Transcribed Date: 01/02/2024 06:37 ET us Self Referral Sppl IMG BI PROCEDURES Final Resul t from Last 3 Months or Most Recently Relevant to Health Maintenance Insurance [facility] [place] Care Teams Chief Librarian Branch Or Department Relationship Specialty Start Date End Date Birdie Beth NP [address] [place] [address] PCP - General 04/20/23
--- OUTSIDE RECORDS SUMMARY | 2025-01-20 08:11 | XMS_ITS | Encounter Summary ---
Author Organization [facility] Address [address] [place] [address] Phone Care Team Providers Care Sample Coordinator Name Role Phone Sonia Horowitz MD Primary Care Provide r Encounter Details Date Type Department Care Team (Late st Contact Info) Description 11/19/2020 Telephone [facility] [address] [place] [address] Isi Ferguson [email or web address] Social History Tobacco Use Types Packs/Day Years [...] on filedocumented in this encounter Care Teams Sample Coordinator Relationship Specialty Start Date End Date Sonia Horowitz MD [address] [place] [address] PCP - General Internal Medicine 04/02/18 documented as of this encounter Additional Source Comments The information contained in this document represents components of the legal health record. It is not the complete legal health record.[facility]
[2025-01-20 11:25] LABS: MANUAL DIFF FLAG NO
[2025-01-20 11:32] LABS: Hematocrit 43.2 % (37.0-47.0); Hemoglobin 14.6 g/dl (12.0-16.0); Imm Gran Abs Auto 0.01 X10*3/uL (0.00-0.03); Imm Gran Pct Auto 0.2 % (0.0-0.4); Lymphocytes Absolute Auto 1.6 X10*3/uL (1.2-4.9); Mean Corpuscular HGB Conc 33.8 g/dl (31.0-35.0); Mean Corpuscular Hemoglobin 31.7 pg (27.0-33.0); Mean Corpuscular Volume 93.7 fL (80.0-98.0); NRBC Abs Auto 0.000 X10*3/uL (0.0-0.012); NRBC Pct Auto 0.0 /100WBC (0.0-0.2); Platelet Count 271 X10*3/uL (160-400); Red Blood Count 4.61 X10*6/uL (4.20-5.50); White Blood Count 5.4 X10*3/uL (4.8-10.8)
[2025-01-20 11:53] LABS: Alanine Aminotransferase 13 U/L (0-31); Albumin Level 4.2 g/dL (3.5-5.0); Alkaline Phosphatase 60 U/L (39-117); Anion Gap 11 (12-20); Aspartate Amino Transferase 21 U/L (5-31); Blood Urea Nitrogen 13 mg/dL (9-16); Calcium 9.0 mg/dL (8.4-10.2); Carbon Dioxide 26 mmol/L (22-29); Chloride 109 mmol/L (96-108); Cholesterol 239 mg/dL (<200); Estimated Glomerular Filt Rate 59; HDL Cholesterol 70 mg/dL (>40); Iron 84 mcg/dL (30-160); Percent Iron Saturation 41 % (15-50); Potassium 3.6 mmol/L (3.3-5.1); Sodium 142 mmol/L (135-145); Total Iron Binding Capacity 207 mcg/dL (228-428); Total Protein 6.3 g/dL (6.5-8.0); Triglycerides 103 mg/dL (<150); Unsaturated Iron Binding 123 ug/dL
[2025-01-20 12:09] LABS: Ferritin 64 ng/mL (10-250)
[2025-01-20 12:17] LABS: Folate 8.5 ng/mL (> or = 4.0); Vitamin B12 231 pg/mL (200-900)
[2025-01-24 14:47] LABS: Vitamin D 25-OH, D2 <4 ng/mL; Vitamin D 25-OH, D3 35 ng/mL; Vitamin D 25-OH, Total 35 ng/mL (30-100)
== END 2025-01-20 08:07 | disposition home or self-care (01) ==
LOC: HO.WFDLDS 08:06
PROVIDERS: Visit Provider Physician Assistant Medical
DX: R79.89 Other specified abnormal findings of blood chemistry (principal); F41.8 Other specified anxiety disorders; N63.10 Unspecified lump in the right breast, unspecified quadrant; N63.20 Unspecified lump in the left breast, unspecified quadrant; E78.5 Hyperlipidemia, unspecified; R92.30 Dense breasts, unspecified; D64.9 Anemia, unspecified
CPT/HCPCS: 36415; 80053; 80061; 82306; 82607; 82728; 82746; 83540; 84443; 85025

== ENCOUNTER 2025-01-22 08:09 | Outpatient (AMB) | payer OTHER, SELFPAY ==
--- NOTE | 2025-01-22 08:18 | A.OFFPC_ITS ---
Vital Signs 01/22/25 08:31 Height 5 ft 0.63 in Weight 139 lb 7 oz BMI 26.7 BP 98/62 Blood Pressure Location Rt brachial Position Sitting Respiration 12 Pulse 62 Pulse Source Pulse Oximeter Temp 98.1 F Temp Source Oral Pulse Oximetry (%) 98 Oxygen Delivery Method Room Air Intake Visit Reasons: CPE Intake Note: Hortensia presents in the office today for her annual physical. Power Project Manager Required: No Is last menstrual period known: Yes Last menstrual period: 01/05/25 Post menopausal: No Patient : No Allergies bee venom protein (honey bee) Allergy (Verified 01/22/25 08:22) Swelling neomycin Allergy (Verified 01/22/25 08:22) Rash atorvastatin Adverse Reaction (Intermediate, Verified 01/22/25 08:22) Muscle Pain phentermine Adverse Reaction (Intermediate, Verified 01/22/25 08:22) Insomnia Tobacco use date assessed: 01/22/25 Dental Screening Dental Screen Date: 01/22/25 Did you have a dental visit in the last 12 months?: No Did you have a dental problem in the last 6 months where you did not have access to dental care?: No Was dental information given to patient?: Patient declined HPI HPI Comments History of Present Illness Details This is a 59-year-old female with a past medical history of anxiety with depression, allergy to Hymenoptera, cervical spinal stenosis and chronic bilateral shoulder pain presenting for a physical. We reviewed her lab results. Her GFR is 59. Creatinine is normal. She suspects she was under hydrated because she has not been eating or drinking like she should because of the GLP 1 she is taking. She does not drink a lot of water during the day. Her total protein level is also mildly decreased. The vitamin-D level still pending. B12 is borderline low at 231. She is going to start a B12 supplement every other day that I sent to the pharmacy. She is also going to start drinking protein shakes, and she will repeat the blood work in 2 months. She wants to stay on the current dose of Zepbound because she feels like the side effects are improving. She uses omeprazole for the day after she takes the injection. She does not vomit or have abdominal pain, but she does endorse decreased appetite and some nausea. She also gets constipation for which she is going to try senna tea. Anxiety with depression-taking bupropion 100 mg a day and Effexor ER 150 mg daily. Hyperlipidemia-previously tried atorvastatin which caused muscle aches. Quit smoking more than [address] score ordered, but she has to reschedule it. LDL 149. HDL 70. 10 year ASCVD risk score 1.4%. Denies family history of early CAD. She has a past medical history of low vitamin-D and anemia, but at the time she was having dysfunctional uterine bleeding. She had an annual gynecologic exam/Pap in August of 2023 which was normal. I referred her to Gynecology today. She is on estradiol patches. She has a prescription for Valtrex to use as needed for outbreaks. Obesity-taking Zepbound. Initial weight 164 lb, BMI 31.4 07/21/24. Today 139 lb 7 oz and BMI 26.7. She can not take phentermine because it causes severe insomnia. Due to constipation, nausea and lab results patient is advised not to increase and stay on this dose for maintenance and consider lowering the dose to 5 mg. She had a mammogram at [facility] in December of 2023 which showed well- circumscribed bilateral breast masses with benign features and heterogenously dense breast tissue. Patient said she had follow up ultrasound completed at [facility], and she was told to repeat the ultrasound in 6 months. She is due for another mammogram. This is ordered. Denies family history of breast cancer. Reports Tdap is up-to-date. Declines flu vaccine. I recommended the Shingrix vaccine and pneumonia vaccine. Patient attempted the prep for colonoscopy in March 2024 with [facility], but she had vomiting with the prep. Her grandfather had colon cancer. Mother had history of colon polyps. Colonoscopy was recommended due to the family history, but she deferred it unless Cologuard was positive. Cologuard negative 08/05/24. She is advised to schedule the appointment with Dermatology for a skin exam. There is a possible family history of melanoma. She had an EKG which showed a left anterior fascicular block. Echocardiogram 11/04/2024 showed [id number] focal hypertrophy of the basal septum but no valvular pathology and normal LVEF of 65%. Coronary artery CT scan is pending. Denies chest pain and shortness of breath. Both of her ears are occluded with cerumen today. Denies pain. She is going to use Debrox drops and return for a nurse visit for flushing. ROS: Constitutional: No unexplained weight loss, fever, chills. Eyes: No vision changes, blurry vision, double vision, eye pain, eye redness, eye discharge. ENT: No ear pain, sneezing, congestion, runny nose or sore throat. Respiratory: No shortness of breath, cough or sputum production. Cardiovascular: No chest pain, chest pressure or chest discomfort. No palpitations or pedal edema. Gastrointestinal: No abdominal pain, vomiting, diarrhea or blood in stools. See HPI Genitourinary: No dysuria, hematuria, urinary frequency. Neurologic: No headache, dizziness, syncope, unilateral weakness, ataxia, numbness or tingling in the extremities. Musculoskeletal: No joint swelling Hematologic/Lymphatics: No bleeding or bruising. No painful lymph nodes. Skin: No new or changing lesions Endocrine: No cold or heat intolerance. No polyuria or polydipsia. Psychiatric: No SI/HI. Physical exam: Constitutional: Alert, in no distress. Head: Normocephalic. Eyes: Pupils are equal, round and reactive to light. Extraocular muscles intact. Ear, Nose and Throat: Canals occluded by brown cerumen. Normal nasal mucosa. No nasal discharge. No oral lesions. Neck: Supple, Full range of motion. No lymphadenopathy. No palpable thyroid masses. Respiratory: Clear to auscultation. Cardiovascular: S1 S2 regular. No murmurs. No carotid bruits. Gastrointestinal: Abdomen soft, non-tender, non-distended. Normal bowel sounds. No palpable masses. Neurologic: No focal neurological deficits. Symmetric patellar reflexes. Moves all extremities spontaneously. Skin: Normal color and texture Musculoskeletal: No gross deformities Extremities: Warm and well perfused. No clubbing, cyanosis or edema. Intact peripheral pulses bilaterally Psychiatric: Normal mood and affect [facility] Medical History (Updated 01/22/25 @ 09:24 by CRISTY Arroyo) Bilateral impacted cerumen Routine physical examination Cardiac hypertrophy Abnormal ECG Left anterior fascicular block Obesity (BMI 30.0-34.9) Dermatitis Genital herpes Depression with anxiety Hyperlipidemia Low vitamin D level Dense breast tissue Masses of both breasts delivery delivered Surgical History [place] teeth removed Family History Father Diabetes Hypertension Bladder cancer FHx: mental illness Depression Sister Diabetes Hypertension Thyroid disease Graves disease Maternal Grandfather Stroke Parkinsons disease Colon cancer Paternal Grandfather FH: prostate cancer Lung cancer Paternal Grandfather No problems noted. 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 1. Little interest or pleasure in doing things: several days 2. Feeling down, depressed, or hopeless: not at all 3. Trouble falling or staying asleep, or sleeping too much: several days 4. Feeling tired or having little energy: several days 5. Poor appetite or overeating: not at all 6. Feeling bad about yourself - or that you are a failure or have let yourself or your family down: not at all 7. Trouble concentrating on things, such as reading the newspaper or watching television: not at all 8. Moving or speaking so slowly that other people could have noticed. Or the opposite - being so fidgety or restless that you have been moving around a lot more than usual: not at all 9. Thoughts that you would be better off or of hurting yourself in some way: not at all Total score: 3 Depression Screening Interpretation: Negative Depression Screening Done: Yes Source: Developed by Drs. Alexander Melendez, Nelia Contreras, Harry Slaughter and colleagues, with an educational nishant from [employer]. Thrive Questionnaire Date Thrive assessed: 01/22/25 I am a: Patient What is your living situation today?: I have a steady place to live Within the past 12 months, did the food you bought not last and you didn't have the money to get more?: Never true Within the past 12 months, did you worry whether your food would run out before you got money to buy more?: Never true Do you have trouble paying for medicines?: No Do you have trouble getting transportation to medical appointments?: No Do you have trouble paying your heating and electricity bill?: No Do you have trouble taking care of your child, family member or friend?: No Do you have trouble with day-to-day activities such as bathing, preparing meals, shopping, managing finances, etc.?: No Are you currently unemployed and looking for a job?: No Are you interested in more education?: No Please select the resources that you would like help with: None Currently or been in a relationship where the following occur: No concerns reported THRIVE Score: 0 AUDIT C Alcohol Use Questionnaire (AUDIT-C) 1. How often do you have a drink containing alcohol?: Monthly or less 2. How many drinks containing alcohol do you have on a typical day when you are drinking?: 1 or 2 3. How often do you have six or more drinks on one occasion?: Never Total Score: 1 STEVE-7 AMB Questionnaire STEVE-7 Date STEVE - 7 assessed: 01/22/25 Feeling nervous, anxious, or on edge: 1 = Several days Not being able to stop or control worryin = Several days Worrying too much about different things: 1 = Several days Trouble relaxin = Not at all Being so restless that it is hard to sit still: 0 = Not at all Becoming easily annoyed or irritable: 0 = Not at all Feeling afraid as if something awful might happen: 0 = Not at all Total STEVE-7 score (0-4 normal; 5-9 mild; 10-14 moderate; 15-21 severe): 3 Source: Developed by Drs. Alexander Melendez, Nelia Contreras, Harry Slaughter and colleagues, with an educational nishant from [employer]. STEVE-7 Assessment Billing STEVE-7 Assessment Tool: STEVE-7 Assessment 71249 Physical exam (Primary Care) Vital Signs: Last Vital Signs Temp 98.1 F 01/22/25 08:31 Pulse 62 01/22/25 08:31 Resp 12 12/04/25 08:31 BP 98/62 01/22/25 08:31 Pulse Ox 98 01/22/25 08:31 Oxygen Delivery Method Room Air 01/22/25 08:31 BMI result Body Mass Index 26.7 Tobacco/Smoking Status: Tobacco use Status Tobacco use date assessed 01/22/25 01/22/25 08:25 Patient Tobacco Use Status Former Tobacco user 01/22/25 08:35 e-Cigarette/Vaping Use Never Used 01/22/25 08:35 PHQ-9: PHQ-9 Score PHQ-9: Total score 3 01/22/25 09:15 Depression Screening Interpretation: Negative Thrive Assessment: Date of Thrive Assessment Date Thrive assessed 01/22/25 01/22/25 08:25 Currently or been in a relationship where the following occur: No concerns reported Coding Level of Care Code Est Pt Prev Care 40-64y(59296) Complex visit Add On G2211 Diagnoses Routine physical examination Z00.00 Bilateral impacted cerumen H61.23 Pure hypercholesterolemia E78.00 Hyperlipidemia type: pure hypercholesterolemia Depression with anxiety F41.8 Obesity (BMI 30.0-34.9) E66.811 Additional Codes STEVE-7 Assessment Billing - STEVE-7 Assessment Tool: STEVE-7 Assessment 75425 ([id number]) Assessment & Plan Assessment & Plan (1) Routine physical examination: Code(s): Z00.00 - Encounter for general adult medical examination without abnormal findings Category: Medical (2) Bilateral impacted cerumen: Code(s): H61.23 - Impacted cerumen, bilateral Category: Medical (3) Hyperlipidemia: Code(s): E78.5 - Hyperlipidemia, unspecified Category: Medical Qualifiers: Hyperlipidemia type: pure hypercholesterolemia Qualified Code(s): E78.00 - Pure hypercholesterolemia, unspecified (4) Depression with anxiety: Code(s): F41.8 - Other specified anxiety disorders Category: Medical (5) Obesity (BMI 30.0-34.9): Code(s): E66.811 - Obesity, class 1 Category: Medical Plan Patient is seen today for a routine physical. As part of this visit we reviewed the following issues, which are considered and essential part of preventative health in this age group: - Breast Cancer screening - Annual Supervisor Electronics Assembly exam - Screening for colon cancer - Blood pressure screening - Cholesterol screening - Osteoporosis prevention including calcium/vitamin D intake, weight bearing exercise & smoking cessation - Nutritional and exercise counseling - Counseling of injury prevention including fire prevention, smoke alarms and seat belt usage - Screening for depression - Education about skin cancer - Recommendations about immunizations - Recommendation of an eye exam - Screening for substance abuse See HPI regarding additional treatment plan. Schedule follow up in 6 months. Orders: Orders MM screening mammo BI Today Z12.31 - Encounter for screening mammogram for malignant neoplasm of breast Microalbumin, Random (w Creat) Today R79.89 - Other specified abnormal findings of blood chemistry Comprehensive Met. Panel Today R79.89 - Other specified abnormal findings of blood chemistry Referrals CARDIOTHORACIC ICU RN Referral Z01.419 - Encounter for gynecological examination (general) (routine) without abnormal findings Medications: New cyanocobalamin (vitamin B-12) 1,000 mcg PO DAILY 90 tabs 3RF omeprazole 20 mg PO DAILY 90 caps 3RF carbamide peroxide 6.5% (Debrox) 5 drps otic (ears) Q12H 15 mL 0RF 4 days Refilled tirzepatide (weight loss) (Zepbound) 7.5 mg (0.5 mL) subcut QWEEK 2 mL 3RF
--- OUTSIDE RECORDS SUMMARY | 2025-01-22 08:19 | XMS_ITS | Encounter Summary ---
Author Organization [facility] Address [address] [place] [address] Phone Care Team Providers Care Rigging Up Worker Name Role Phone Sonia Horowitz MD Primary Care Provide r Encounter Details Date Type Department Care Team (Late st Contact Info) Description 11/19/2020 Telephone [facility] [address] [place] [address] sIi Ferguson [email or web address] Social History Tobacco Use Types Packs/Day Years [...] on filedocumented in this encounter Care Teams Rigging Up Worker Relationship Specialty Start Date End Date Sonia Horowitz MD [address] [place] [address] PCP - General Internal Medicine 04/02/18 documented as of this encounter Additional Source Comments The information contained in this document represents components of the legal health record. It is not the complete legal health record.[facility]
--- OUTSIDE RECORDS SUMMARY | 2025-01-22 08:19 | XMS_ITS | Clinical Summary ---
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 TISSUE DENSITY: The breasts are [...] Signed Date: 01/02/2024 06:44 ET Workstation ID: [id number] Transcribed By: Self Edit Transcribed Date: 01/02/2024 06:37 ET us Self Referral Sppl IMG BI PROCEDURES Final Resul t from Last 3 Months or Most Recently Relevant to Health Maintenance Insurance [facility] [employer] [place] - [place] Care Teams Muck Operator Relationship Specialty Start Date End Date Birdie Beth NP [address] [place] [address] PCP - General 04/20/23
--- OUTSIDE RECORDS SUMMARY | 2025-01-22 08:19 | XMS_ITS | Clinical Summary ---
Author Organization [facility] Address [address] [facility] [address] [place] [phone] Phone Care Team Providers Care Senior Product Designer Name Role Phone Sonia Horowitz MD Primary [...] Efforts Self directed diets: Exercising. Previously in [employer] and [employer]. 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 Hypnosis. Commercial Programs: None. Anti-Obesity Medications: None. Weight Loss surgery: None. Family History: Obesity: Father and sister. DM: Father and sister Diet: Intermittent fasting, focusing on water intake. 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 Activity during day. Sleep: Disrupted sleep, hot flashes. Taking Black Cohosh. Stress: High stress time. from , shared custody. Support: Lives with daughter, older children out of house. 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 Menstrual Cycles: Regular cycles remain. Contraception: [...] Efforts Self directed diets: Exercising. Previously in [employer] and [employer]. 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 Hypnosis. Commercial Programs: None. Anti-Obesity Medications: None. Weight Loss surgery: None. Family History: Obesity: Father and sister. DM: Father and sister Today's weight: Unknown Diet: Working on increased water intake. 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 Apple watch, cleaning house. Sleep: Disrupted sleep, hot flashes. Taking Black Cohosh. Stress: High stress time. Recently left job to help support daughter's home schooling. Support: Lives with and daughter, older children out of house. Feels like she does not have good support at home. 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 Menstrual Cycles: Regular cycles but [...] increased water intake. 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 Sleep: Disrupted sleep, hot flashes. Taking Black Cohosh. Stress: High stress time. Recently left job to help support daughter's home schooling. Support: Lives with and daughter, older children out of house. Feels like she does not have good support at home. 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 Menstrual Cycles: Regular cycles but [...] food we had discussed meeting with an [facility] pscyhologist. She is scheduled to [...] sweets recently. ? 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 Sleep: Disrupted sleep, hot flashes. Taking Black Cohosh. Stress: High stress time. Recently left job to help support daughter's home schooling. Marital challenges. Support: Lives with and daughter, older children out of house. Feels like she does not have good support at home. 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 Menstrual Cycles: Regular cycles but [...] food I suggest that meeting with an [facility] pscyhologist may be helpful. She [...] SEE NARRATIVE - 04/25/2018 7:22 AM EST [address] [address] Principal Gifts Officer: Glory Altamirano MD CONSERVATION SCIENCE TEACHER Cytology Report FINAL DIAGNOSIS A. PAP SMEAR (SUREPATH) CE: SPECIMEN ADEQUACY: Satisfactory for evaluation; transformation zone absent/insufficient. INTERPRETATION: NEGATIVE FOR INTRAEPITHELIAL LESION OR MALIGNANCY. Fungal organisms morphologically consistent with Susan species. Electronically Signed Out By: Arpita Hartley [facility] The Pap test is a [...] 52, 56, 58, 59, 66, 68) by [employer] HR-HPV analysis. Clinical correlation is advised. This HPV test was performed at [facility], [address] [place] [address]. This test has been FDA approved for SurePath cervical cytology specimens. The accuracy and precision of this test for all other specimen sources has been verified in the Cytopathology Laboratory of the [facility] and has not been cleared or approved by the U.S. Food and Drug Administration. Clinical correlation is advised. CLINICAL HISTORY Date of Last Menstrual Period: Not Provided Menstrual History: Connie-Menopausal Other Clinical Conditions: Screening Pap SPECIMEN SOURCE A: PAP SMEAR (SUREPATH) CE Patient Name: HORTENSIA HIDALGO : 1965 (Age: 52) Sex: F Institution: [facility] Location: [facility] Date of Collection: 04/17/2018 Date of Reported: 04/24/2018 14:20 Results to: Dianelys Contreras MD Dianelys Contreras MD CYTOLOGY ORDERABLES Edited Resul t - Final SEE NARRATIVE from Last 3 Months or Most Recently Relevant to Health [place] [address] [facility] Care Teams Senior Product Designer Relationship Specialty Start Date End Date Sonia Horowitz MD [address] [place] [id number] PCP - General Internal Medicine 04/02/18 Additional Source Comments The information contained in this document represents components of the legal health record. It is not the complete legal health record.[facility]
[2025-01-22 08:31] VITALS: BP 98/62; PULSE 62; RESP 12; TEMP 36.7; O2SAT 98; BMI 26.7
== END 2025-01-22 09:24 | disposition home or self-care (01) ==
LOC: HO.HMCFM 08:10
PROVIDERS: Visit Provider Physician Assistant Medical
DX: Z00.00 Encounter for general adult medical examination without abnormal findings (principal); H61.23 Impacted cerumen, bilateral; E66.811 Obesity, class 1; Z68.26 Body mass index [BMI] 26.0-26.9, adult; E78.00 Pure hypercholesterolemia, unspecified; F41.8 Other specified anxiety disorders

== ENCOUNTER → 2025-01-22 08:09 | Outpatient (BNVA) | payer OTHER, SELFPAY | PROVIDERS: Visit Provider Physician Assistant Medical | DX: Z00.00 Encounter for general adult medical examination without abnormal findings (principal); H61.23 Impacted cerumen, bilateral; E78.00 Pure hypercholesterolemia, unspecified; F41.8 Other specified anxiety disorders; E66.811 Obesity, class 1; Z13.31 Encounter for screening for depression; Z13.39 Encounter for screening examination for other mental health and behavioral disorders | CPT/HCPCS: 96127; 99396 ==